=== PATIENT | female | born 1995 | race Caucasian/White ===

== ENCOUNTER 2020-06-07 10:13 | Inpatient (IN) | payer OTHER, SELFPAY ==
[~2020-06-07] VITALS: Ht 160 cm; Wt 98.0 kg
--- NOTE | 2020-06-07 10:20 | NUR ---
PT BIB SELF C/O SOB AND COUGH X1 DAY. PT DENIES ANY FEVER. PT REPORTS SHE COUGHED UP A "LITTLE BLOOD TODAY." PT ALSO REPRTED SHE WAS COVID TESTED YESTERDAY AT URGENT CARE ADN WAS NEGATIVE. PT IS AAOX4, NO DISTRESS NOTED, RESP E/U, LUNGS CTA, SKIN INTACT PINK WARM AND DRY. SPO2 @ 93-94%. PT NOTED SPEAKING IN COMPLETE SENTENCES. MD AWARE. AWAITING MSE BY MD IN THE TENT. PT WEARING MASK.
--- NOTE | 2020-06-07 10:30 | NUR ---
MSE COMPLETED BY DR ALANIS IN THE TENT.
--- NOTE | 2020-06-07 10:48 | NUR ---
COVID SAMPLES COLLECTED AND SENT TO THE LAB
--- NOTE | 2020-06-07 11:35 | NUR ---
DR ALANIS AT THE BESIDE DISCUSSING PLAN OF CARE TO PT.
--- NOTE | 2020-06-07 12:20 | NUR ---
PT IN NO DISTRESS, RESP E/U, IV ANTIBIOTICS INFUSING, NO PROBLEM, PT AWARE SHE IS ADMITTED. PT IS AAOX4, PT ON FULL CM, SINUS TACHYCARDIA NOTED, MD AWARE. WILL CONT TO MONITOR.
[2020-06-07 12:30] LABS: CALCIUM 9.5 mg/dL (8.5-10.1); CHLORIDE SERUM 101 mmol/L (98-107); CREATININE SERUM 0.7 mg/dL (0.6-1.0); GFR1 > 60 mL/min; GLUCOSE SERUM 90 mg/dL (74-106); POTASSIUM SERUM 3.6 mmol/L (3.5-5.1); SODIUM SERUM 135 mmol/L (136-145)
[2020-06-07 12:34] LABS: ALBUMIN 3.4 g/dL (3.4-5.0); ALKALINE PHOSPHATASE 77 U/L (46-116); ALT/SGPT 23 U/L (14-59); AST/SGOT 16 U/L (15-37); BILIRUBIN TOTAL 0.56 mg/dL (0.20-1.00); LACTIC DEHYDROGENASE (LDH) 226 U/L (100-190)
[2020-06-07 12:36] LABS: BASOPHIL % 1.6 % (0.2-1.3); PLATELET COUNT 368 x10^3mcL (179-408); RED CELL DISTRIBUTION WIDTH 13.2 % (12.3-17.7)
[2020-06-07 12:45] LABS: C REACTIVE PROTEIN 15.4 mg/dL (<=0.9); TOTAL PROTEIN, SERUM 8.6 g/dL (6.4-8.2)
[2020-06-07 12:50] LABS: microscopic required? YES; urine erythrocyte 3+ (NEGATIVE)
--- NOTE | 2020-06-07 13:00 | NUR ---
REPORT GIVEN TO KATHY QUEEN, ELLY WHO WILL ASSUME FURTHER CARE OF THIS PATIENT. AWAITING ADMIT ORDERS TO MOVE PATIENT.
--- NOTE | 2020-06-07 14:10 | NUR ---
PT IS AAOX4, TELE [address] READING SINUS TACH HR 103. RESP EVEN, SHALLOW WITH SOB UPON EXERTION. LUNG SOUNDS DIMINISHED BILATERALLY. ON R/A. DRY COUGH NOTED. IV CATH TO LAC FLUSHED AND PATENT. SITE WNL. DENIES PAIN. PT ORIENTED TO ROOM AND CALL LIGHT. CALL LIGHT WITHIN REACH. BED IN LOWEST POSITION.
[2020-06-07 14:48] VITALS: BP 110/59
--- NOTE | 2020-06-07 16:18 | NUR ---
FLU SHOT IM GIVEN IN L DELTOID. SITE WNL. COVERED WITH CDI BANDAID. RESP EVEN AND UNLABORED. NO DISTRESS NOTED. CALL LIGHT WITHIN REACH.
[2020-06-07 17:04] VITALS: BP 119/62
--- NOTE | 2020-06-07 18:10 | NUR ---
PT RESTING IN BED BUT EASILY AROUSABLE TO VERBAL STIMULI. RESP EVEN AND UNLABORED. NO DISTRESS NOTED. TELE [address] READING NSR. IVF RUNNING TO LAC. NO S/S OF INFECTION OR INFILTRATION AT SITE. DRESSING CDI. NO DISTRESS NOTED. CALL LIGHT WITHIN REACH. BED IN LOWEST POSITION. WILL ENDORSE ALL CARE TO TOWER LOADER OPERATOR RN.
[2020-06-07 19:41] VITALS: Ht 160 cm; Wt 98.0 kg
[2020-06-07 20:37] VITALS: BP 105/50
--- NOTE | 2020-06-07 23:51 | NUR ---
PT ALERT, TOLERATES MEDS WELL, HAS NO C/O PAIN, NO SIGNS OF DISTRESS NOTED , IV TO LAC PATENT AND INTACT, NO WEAKNESS NOTED, SKIN WARM DRY AND INTACT, BOWEL SOUNDS ACTIVE, CONTINENT OF BOWEL AND BLADDER, SAFETY MAINTAINED, WILL CONTINUE TO OBSERVE.
--- NOTE | 2020-06-08 05:17 | NUR ---
PT UNEVENTFUL THIS SHIFT, NO C/O PAIN, NO SIGNS OF DISTRESS NOTED, REMAINS STABLE, WILL CONTINUE TO OBSERVE.
[2020-06-08 05:36] VITALS: BP 101/47
[2020-06-08 07:21] LABS: BASOPHIL % 0.3 % (0.2-1.3); PLATELET COUNT 319 x10^3mcL (179-408); RED CELL DISTRIBUTION WIDTH 12.9 % (12.3-17.7)
--- NOTE | 2020-06-08 07:51 | NUR ---
RECIEVED PT FROM MOLD FILLER AND DRAINER NURSE. TELE # 33, SR. PT IS A/OX4, BREATHING E/U ON RA. IN NO ACUTE RESP DISTRESS. PT REPORTS DRY COUGH, DENIES SOB OR PAIN AT THIS TIME. IV TO LAC PATENT, CDI, INFUSING NS AT 80MLHR. PT REPORTS NO FURTHER CONCERNS AT THIS TIME. BED IN LOWEST POSITION, CALL LIGHT IN REACH.
[2020-06-08 07:53] LABS: ALKALINE PHOSPHATASE 67 U/L (46-116); ALT/SGPT 19 U/L (14-59); AST/SGOT 17 U/L (15-37); BILIRUBIN TOTAL 0.57 mg/dL (0.20-1.00); CALCIUM 9.2 mg/dL (8.5-10.1); CHLORIDE SERUM 103 mmol/L (98-107); CREATININE SERUM 0.6 mg/dL (0.6-1.0); GFR1 > 60 mL/min; GLUCOSE SERUM 87 mg/dL (74-106); POTASSIUM SERUM 3.6 mmol/L (3.5-5.1); SODIUM SERUM 137 mmol/L (136-145); TOTAL PROTEIN, SERUM 7.1 g/dL (6.4-8.2)
[2020-06-08 08:08] LABS: ALBUMIN 2.7 g/dL (3.4-5.0)
[2020-06-08 08:20] VITALS: BP 109/53
--- NOTE | 2020-06-08 10:15 | NUR ---
SPOKE WITH DR GANDARA AT BEDSIDE, NOITFIED HIM OF PT'S REQUEST FOR A COUGH MEDICINE.
[2020-06-08 11:48] VITALS: BP 106/48; BP 108/78
--- NOTE | 2020-06-08 11:55 | NUR ---
PT SITTING UP IN BED, A/O X4, BREATHING E/U ON RA. IN NO ACUTE DISTRESS. PT DENIES PAIN/SOB AT THIS TIME. IV TO LAC PATENT, INFUSING ZITHROMAX DOSE PER EMAR. NO FURTHER CONCERNS VOICED AT THIS TIME. BED IN LOWEST POSITION, CALL LIGHT IN REACH.
[2020-06-08 16:16] VITALS: BP 118/69
--- NOTE | 2020-06-08 17:07 | NUR ---
PT IS SITTING UP IN BED, WATCHING TV. A/O X4, BREATHING E/U ON RA, IN NO ACUTE RESP DISTRESS. PT REPORTS NO PAIN/SOB AT THIS TIME. IV TO LAC PATENT, INFUSING NS AT 80ML/HR PER EMAR. NO FURTHER CONCERNS VOICED AT THIS TIME. BED IN LOWEST POSITION, CALL LIGHT IN REACH.
--- NOTE | 2020-06-08 20:08 | NUR ---
PT ALERT AND ORIENTED X4, LUNG SOUNDS DIMINISHED, BOWEL SOUNDS ACTIVE, CONTINENT OF BOWEL AND BLADDER, NO WEAKNESS NOTED, SKIN WARM DRY AND INTACT, NO ISSUES NOTED, NO C/O PAIN, NO SIGNS OF DISTRESS NOTED, IV LAC INTACT AND PATENT, TOLERATES MEDS WELL, SAFETY MAINTAINED, WILL CONTINUE TO OBSERVE.
[2020-06-08 21:45] VITALS: BP 102/54
--- NOTE | 2020-06-09 01:03 | NUR ---
PT REMAINS STABLE, NO C/O PAIN, NO SIGNS OF DISTRESS NOTED, WILL CONTINUE TO OBSERVE.
--- NOTE | 2020-06-09 05:02 | NUR ---
PT UNEVENTFUL THIS SHIFT, NO C/O PAIN, NO SIGNS OF DISTRESS NOTED, REMAINS STABLE, SAFETY MAINTAINED, WILL CONTINUE TO OBSERVE.
[2020-06-09 05:57] VITALS: BP 108/50
[2020-06-09 06:42] LABS: BASOPHIL % 0.3 % (0.2-1.3); PLATELET COUNT 365 x10^3mcL (179-408); RED CELL DISTRIBUTION WIDTH 13.1 % (12.3-17.7)
--- NOTE | 2020-06-09 07:30 | NUR ---
REPORT RECEIVED FROM REFINERY OPERATOR ASSISTANT RN. PT IS CURRENTLY AWAKE, A/Ox4. COMPLAINING OF IV LEAKING, NO SWELLING OR REDNESS NOTED BUT IT IS LEAKING. . IV WAS RUNNING NS 80ml/hr. IV, DICONTINUED, INTACT, WILL PLACE A NEW IV. PT IS STABLE THIS TIME, DENIES SOB AND TOLERATING ROOM AIR WELL. PT STATES PAIN 7/10 BUT MANAGEABLE PAIN LEVEL IS 7/10, REFUSES PAIN MEDICATION AT THIS TIME. PT COMPLAINS OF DRY COUGH WITH AMBULATION, WILL ASK DR FOR COUGH MEDICATION. SKIN IS INTACT, ALL NEEDS MET AT THIS TIME. PT WAS TAUGHT TO CHANGE POSITIONS FREUQENTLY, PERFORM DEEP BREATHING EXERCISES AT TOLERATED, AND TO USE CALL LIGHT FOR ASSISTANCE. CALL LIGHT WITHIN REACH. SAFETY PRECAUTIONS IN PLACE. WILL CONTINUE TO MONITOR.
[2020-06-09 07:59] LABS: TOTAL IRON BINDING CAPACITY 270 ug/dL (250-450)
[2020-06-09 08:00] LABS: IRON 22 ug/dL (50-170)
[2020-06-09 08:06] LABS: ALKALINE PHOSPHATASE 70 U/L (46-116); ALT/SGPT 32 U/L (14-59); AST/SGOT 15 U/L (15-37); CALCIUM 9.2 mg/dL (8.5-10.1); CARBON DIOXIDE 29.8 mmol/L (21-32); CHLORIDE SERUM 104 mmol/L (98-107); CREATININE SERUM 0.7 mg/dL (0.6-1.0); GFR1 > 60 mL/min; GLUCOSE SERUM 97 mg/dL (74-106); POTASSIUM SERUM 3.4 mmol/L (3.5-5.1); SODIUM SERUM 138 mmol/L (136-145); TOTAL PROTEIN, SERUM 7.5 g/dL (6.4-8.2)
[2020-06-09 08:13] LABS: ALBUMIN 2.9 g/dL (3.4-5.0)
[2020-06-09 08:20] VITALS: BP 105/64
--- NOTE | 2020-06-09 10:55 | NUR ---
SPOKE TO AND HE STATED HE WILL INPUT COUGH EMDICATION FOR PT. IS AWARE OF K3.4 AND TO GIVE PRN POTASSIUM REPLACEMENT. HE WILL ALSO TALK TO PT AND INFORM HER ON HER DIAGNOSIS AND WHEN SHE WILL BE ABLE TO GO HOME.
[2020-06-09 11:55] VITALS: BP 116/55
[2020-06-09 17:13] VITALS: BP 102/50
--- NOTE | 2020-06-09 19:00 | NUR ---
PT REMAINED STABLE THROUGHOUT SHIFT. DENIED PAIN AND SOB THROUGHOUT SHIFT. PT WAS AMBULATORY BUT RESTED MOST OF THE TIME. ALL NEEDS MET. SAFETY PRECAUTIONS IN [place]. CALL LIGHT WITHIN REACH. WILL ENDORSE CARE TO NIGHT BISI QUEEN.
--- NOTE | 2020-06-09 19:20 | NUR ---
PT ALERT AND ORIENTED X4, NO SIGNS OF DISTRESS NOTED, NO CIRCULATION ISSUES NOTED, LUNG SOUNDS DIMINISHED, BOWEL SOUNDS ACTIVE, VOIDS INDEPENDENTLY, NO WEAKNESS NOTED, SKIN WARM DRY AND INTACT, IV LEFT HAND INTACT AND PATENT, CONTINUE TO SR ON TELE, CONTINUES ON A REGULAR DIET, NO ISSUES NOTED. REMAINS STABLE, SAFETY MAINTAINED, WILL CONTINUE TO OBSERVE.
[2020-06-09 20:21] VITALS: BP 104/54
--- NOTE | 2020-06-10 05:32 | NUR ---
PT HAD A UNEVENTFUL SHIFT, NO C/O PAIN, NO SIGNS OF DISTRESS NOTED, REMAINS STABLE, SAFETY MAINTAINED, WILL CONTINUE TO OBSERVE.
[2020-06-10 05:48] VITALS: BP 129/69
[2020-06-10 06:44] LABS: BASOPHIL % 0.3 % (0.2-1.3); PLATELET COUNT 369 x10^3mcL (179-408)
[2020-06-10 07:15] LABS: ALKALINE PHOSPHATASE 69 U/L (46-116); ALT/SGPT 30 U/L (14-59); AST/SGOT 12 U/L (15-37); BILIRUBIN TOTAL 0.63 mg/dL (0.20-1.00); CALCIUM 9.4 mg/dL (8.5-10.1); CARBON DIOXIDE 25.9 mmol/L (21-32); CHLORIDE SERUM 103 mmol/L (98-107); CREATININE SERUM 0.7 mg/dL (0.6-1.0); GFR1 > 60 mL/min; GLUCOSE SERUM 83 mg/dL (74-106); POTASSIUM SERUM 3.9 mmol/L (3.5-5.1); SODIUM SERUM 138 mmol/L (136-145); TOTAL PROTEIN, SERUM 7.4 g/dL (6.4-8.2)
[2020-06-10 07:24] LABS: ALBUMIN 2.8 g/dL (3.4-5.0)
--- NOTE | 2020-06-10 07:30 | NUR ---
RECEIVED PATIENT FROM NIGHT RN. PATIENT AWAKE IN BED, A/O X4, DENIES HEADACHE/DIZZINESS. ON PREKINDERGARTEN TEACHER #33, ST, HR 112, DENIES CHEST PAIN/PRESSURE. PALPABLE SARAH RADIAL/PEDAL PULSES, NO EDEMA NOTED. CLEAR/DIMINISHED LS ON SARAH BASES, ON RA O2 SAT 92%, COMPLAINS OF DRY COUGH, MEDICATION WILL BE GIVEN, DENIES SOB. BS PRESENT ON ALL QUADS, ABD SOFT AND NONDISTENDED, DENIES ABD PAIN AND N/V/D. LAST BM ON 06/10/20. VOIDS FREELY. PATIENT IS AMBULATORY. SKIN WARN, DRY AND INTACT. PAIN O/10. 22G IV ON LEFT HAND PATENT AND RUNNING WITH NS AT 80 ML/HR. PATIENT COOPERATIVE AND PLEASANT. CALL LIGHT WITHIN REACH, BED LOCKED AND IN LOWEST POSITION.
[2020-06-10 09:35] VITALS: BP 108/57
[2020-06-10 12:13] VITALS: BP 110/47
[2020-06-10] MEDS ORDERED: TAM75 PO (12:56)
[2020-06-10] MEDS ORDERED: TES100 PO (12:57)
[2020-06-10] MEDS ORDERED: AUGMENTIN 875-1 EACH PO (12:57)
[2020-06-10 13:28] VITALS: BP 110/47
--- NOTE | 2020-06-10 14:30 | NUR ---
PT IS CURRENTLY STABLE, RESTING. DENIES PAIN AND SOB. PT HAS FAMILY MEMBERS PICKING HER UP AROUDN 3:30pm. ALL NEEDS MET AT THIS TIME. SAFETY PRECAUTIONS IN PLACE. WILL CONTINUE TO MONITOR.
--- NOTE | 2020-06-10 15:30 | NUR ---
PATIENT DC HOME PER RAINE VINES ORDERS. PERSONAL BELONGINGS WITH PATIENT, WRITTEN EDUCATIONAL MATERIAL GIVEN. PATIENT SIGNED DC FORMS. INSTRUCTED TO FOLLOW UP WITH PCP AND SCHEDULE APPOINTMENT. TEACHING GIVEN REGARDING NEW MEDS. PATIENT VERBALIZED UNDERSTANDING, ALL QUESTIONS AND CONCERNS ADDRESSED. DC IV ON LEFT HAND. PATIENT STABLE, DENIES CHEST PAIN, SOB, DIZZINESS, NO SIGNS OF DISTRESS NOTED. PATIENT WHEELED DOWN AND LEFT IN PERSONAL VEHICLE.
== END 2020-06-10 16:20 | disposition home or self-care (01) | DRG 137 ==
LOC: ED 10:13 → DU 12:09
PROVIDERS: Emergency Medicine; ADMIT Internal Medicine; ATTEND Internal Medicine
DX: U07.1 COVID-19 (principal); J12.82 Pneumonia due to coronavirus disease 2019; J10.1 Influenza due to other identified influenza virus with other respiratory manifestations; D64.9 Anemia, unspecified; N39.0 Urinary tract infection, site not specified
CPT/HCPCS: 36600; 83880; 85378; 87804; 90658; G0378; J0456; J0696; J1650; J2543; J7030; J7040; U0003